=== PATIENT | female | born 1955 | race Caucasian/White ===

== ENCOUNTER → 2019-11-28 11:22 | Outpatient (CLI) | payer MEDICARE, SELFPAY ==
--- NOTE | ~2019-11-28 | MM_ITS ---
EXAMINATION: MM screening [facility] BI w barby HISTORY: Screening mammogram TECHNIQUE: Craniocaudal and mediolateral oblique 3-D tomosynthesis images were obtained and synthetic 2-D images were generated. CAD analysis was submitted and interpreted. COMPARISON: Comparison to multiple prior studies sequentially, with oldest reviewed study dated 03/01. BREAST PARENCHYMAL COMPOSITION: There are scattered areas of fibroglandular density. FINDINGS: There is no evidence of suspicious mass, calcification, or architectural distortion to sugg est malignancy in either breast. There has been no suspicious interval change. IMPRESSION: 1. No mammographic evidence of malignancy. 2. Recommend routine screening mammography in one year. BI-RADS Category 1: Negative Reviewed, dictated and finalized at location A.
== END ==
PROVIDERS: PCP Physician Assistant; Visit Provider Physician Assistant
DX: Z12.31 Encounter for screening mammogram for malignant neoplasm of breast (principal)
CPT/HCPCS: 77063; 77067

== ENCOUNTER → 2021-04-07 11:42 | Outpatient (CLI) | payer MEDICARE, SELFPAY ==
--- NOTE | ~2021-04-07 | MM_ITS ---
EXAMINATION: MM screening [facility] BI w barby HISTORY: Screening mammogram TECHNIQUE: Craniocaudal and mediolateral oblique 3-D tomosynthesis images were obtained and synthetic 2-D images were generated. CAD analysis was submitted and interpreted. COMPARISON: 11/28/2019, 08/18/2018, 07/15/2016 bilateral screening mammogram examinations BREAST PARENCHYMAL COMPOSITION: There are scattered areas of fibroglandular density. FINDINGS: Stable fibroglandular asymmetry. There is no evidence of suspicious mass, calcification, or architectural distortion to suggest malignancy in either breast. There has been no suspicious interv al change. IMPRESSION: 1. No mammographic evidence of malignancy. 2. Recommend routine screening mammography in one year. BI-RADS Category 1: Negative Reviewed, dictated and finalized at location A. MBLER BODY
== END ==
PROVIDERS: PCP Physician Assistant; Visit Provider Obstetrics & Gynecology
DX: Z12.31 Encounter for screening mammogram for malignant neoplasm of breast (principal)
CPT/HCPCS: 77063; 77067

== ENCOUNTER → 2021-06-23 10:34 | Outpatient (CLI) | payer MEDICARE, SELFPAY ==
--- NOTE | ~2021-06-23 | XR_ITS ---
XR hip LT min 2V 06/23/2021 10:53 Indication: Left hip pain Procedure: 2 views left hip Comparison: No prior studies for comparison. Findings: No fracture, subluxation or dislocation. There is a possible healed left superior pubic matthew us fracture. No significant soft tissue abnormality. No significant joint space narrowing. Impression: 1: No acute bone or joint abnormality. Reviewed, dictated and finalized at location B. ING MOLDER Impression: 1: No acute bone or joint abnormality.
== END ==
PROVIDERS: PCP Physician Assistant; Visit Provider Physician Assistant
DX: M25.552 Pain in left hip (principal)
CPT/HCPCS: 73502

== ENCOUNTER → 2022-04-10 11:00 | Outpatient (CLI) | payer MEDICARE, SELFPAY ==
--- NOTE | ~2022-04-10 | MM_ITS ---
EXAMINATION: MM screening [facility] BI w barby HISTORY: Screening mammogram TECHNIQUE: Craniocaudal and mediolateral oblique 3-D tomosynthesis images were obtained and synthetic 2-D images were generated. CAD analysis was submitted and interpreted. COMPARISON: 04/17/2021, 11/28/2019, 08/18/2018 bilateral screening mammogram examinations BREAST PARENCHYMAL COMPOSITION: There are scattered areas of fibroglandular density. FINDINGS: There is stable fibroglandular asymmetry. There is no evidence of suspicious mass, calcific ation, or architectural distortion to suggest malignancy in either breast. There has been no suspicio us interval change. IMPRESSION: 1. No mammographic evidence of malignancy. 2. Recommend routine screening mammography in one year. BI-RADS Category 1: Negative Reviewed, dictated and finalized at location A. RION ESSBASE DEVELOPER
--- NOTE | ~2022-04-10 | DEXA_ITS ---
Bone Density Report Name: JAQUI RIBEIRO Age: 66 Sex: Female Ethnicity: White Date of : 1955 Indication: osteopenia; height loss; hysterectomy; postmenopausal Referring Provider: SILVANO Study: Bone densitometry was performed. Exam Date: April 10, 2022 Accession number: [id number] Bone Density: Region BMD T-score Z-score Classification AP Spine (L1-L4) 0.828 -2.0 0.0 Osteopenia Femoral Neck (Left) 0.692 -1.4 0.3 Osteopenia Total Hip (Left) 0.839 -0.8 0.6 Normal Femoral Neck (Right) 0.676 -1.6 0.2 Osteopenia Total Hip (Right) 0.827 -0.9 0.5 Normal Total Hip Mean 0.833 -0.9 0.6 Normal World Health Organization criteria for BMD impression classify patients as: Normal (T-score at or above -1.0), Osteopenia (T-score between -1.0 and -2.5), or Osteoporosis (T-score at or below -2.5). 10-year Fracture Risk(1): Major Osteoporotic Fracture 9.5% Hip Fracture 1.2% Reported Risk Factors: [place] (), Neck BMD=0.676, BMI=29.0 (1) FRAX(R) Version 3.08. Fracture probability calculated for an untreated patient. Fracture probability may be lower if the patient has received treatment. Previous Exams: Region Exam Age BMD T-score BMD Change BMD Change Date g/cm2 vs Baseline vs Previous AP Spine(L1-L4) 04/10/2022 66 0.828 -2.0 0.010 0.003 08/08/2015 59 0.826 -2.0 0.008 0.037* 02/24/2013 57 0.789 -2.3 -0.029* -0.029* 02/13/2011 55 0.818 -2.1 Total Hip(Left) 04/10/2022 66 0.839 -0.8 0.059* 0.057* 08/08/2015 59 0.782 -1.3 0.002 -0.040* 02/24/2013 57 0.822 -1.0 0.042* 0.042* 02/13/2011 55 0.780 -1.3 Total Hip(Right) 04/10/2022 66 0.827 -0.9 0.035* 0.013 08/08/2015 59 0.814 -1.0 0.022 -0.017 02/24/2013 57 0.831 -0.9 0.039* 0.039* 02/13/2011 55 0.792 -1.2 *Denotes significance at 95% confidence level, LSC for AP Spine = 0.022 g/cm2, LSC for Total Hip = 0.027 g/cm2 Clinical Information Provided by Patient: Has used the following medications: Calcium, calcium includes vit D Has the following medical conditions: Hysterectomy Patient maximum height was 65 Menopause Age: 48 No regular weight bearing exercise Does not regularly consume dairy products Drinks caffeinated beverages Onset of menses at age 10.5 Number of children 2
== END ==
PROVIDERS: PCP Physician Assistant
DX: Z12.31 Encounter for screening mammogram for malignant neoplasm of breast (principal); M85.88 Other specified disorders of bone density and structure, other site; M85.852 Other specified disorders of bone density and structure, left thigh; M85.851 Other specified disorders of bone density and structure, right thigh
CPT/HCPCS: 77063; 77067; 77080

== ENCOUNTER → 2023-07-10 09:44 | Outpatient (CLI) | payer MEDICARE, SELFPAY ==
--- NOTE | ~2023-07-10 | MM_ITS ---
EXAMINATION: MM screening [facility] BI w barby HISTORY: Screening mammogram TECHNIQUE: Craniocaudal and mediolateral oblique 3-D tomosynthesis images were obtained and synthetic 2-D images were generated. CAD analysis was submitted and interpreted. COMPARISON: 04/10/2022, 04/19/2021, 11/28/2019 BREAST PARENCHYMAL COMPOSITION:Not Dense. There are scattered areas of fibroglandular density. FINDINGS: No suspicious mass, calcification, or architectural distortion are identified in either satish ast to suggest malignancy. There has been no suspicious interval change. IMPRESSION: No mammographic evidence of malignancy. Recommend routine screening mammography in one year. BI-RADS Category 1: Negative Reviewed, dictated and finalized at location . LINE OILER
== END ==
PROVIDERS: PCP Physician Assistant; Visit Provider Physician Assistant
DX: Z12.31 Encounter for screening mammogram for malignant neoplasm of breast (principal)
CPT/HCPCS: 77063; 77067

== ENCOUNTER 2024-08-17 08:58 | Outpatient (CLI) | payer MEDICARE, SELFPAY ==
--- OUTSIDE RECORDS SUMMARY | 2024-08-17 09:15 | XMS_ITS | Clinical Summary ---
Author Organization [facility] Address On license of [facility] [place] [address] Care Team Providers Care Plant Physiology Teacher Name Role Phone Unavailable Primary Care Provider Unavailabl e Social History Tobacco Use Types Packs/Day Years Used Date Smoking Tobacco: Never Assessed Comments Unknown Sex and Gender Information Value Date Recorded Sex Assigned at Not on file Legal Sex Female 7:50 PM CDT Gender Identity Not on file Sexual Orientation Not on file Plan of Treatment Health Maintenance Due Date Last Done Comments Colorectal Cancer Screening Colonoscopy (10 Years) 1955 Hepatitis C 09/20/1971 DTaP, Tdap and Td Vaccines ( 1 - Tdap) 1972 Mammogram Screening 1993 Zoster Vaccines (1 of 2) 09/20/2003 Dexa Scan (General) 2018 Pneumococcal Vaccine: 65+ Ye ars (1 of 1 - PCV) 2018 COVID-19 Vaccine (2023-2 5 season) 2024 Influenza Adult (#1) 2024 RSV Immunization or 60+ Years (1 - 1-dose 75+ series) 2028 Meningococcal B Vaccine Aged Out No l onger eligible based on patient's age to complete this topic Meningococcal Vaccine Aged Out No gerri contreras eligible based on patient's age to complete this topic RSV Immunizations Under 20 Months Aged Out No longer eligible based on patient's age to complete this topic
--- OUTSIDE RECORDS SUMMARY | 2024-08-17 09:15 | XMS_ITS | Clinical Summary ---
Author Organization [facility] [place] [address] [facility] Address [address] [place] [address] Care Team Providers Care Radio Repairer Domestic Name Role Phone Ericka Morfin Primary Care Provider [phone] Allergies Active Allergy Reactions Criticality Noted Date Comments Oxycodone-Acetaminophen Nausea And Vomiting Low 02/2010 Medications ALPRAZolam (XANAX) 0.5 mg tablet Take by mouth nightly as needed 12/24/2021 Active Premarin vaginal cream 2 (two) times a week 12/24/2021 Active ondansetron (ZOFRAN) 4 mg tablet as needed 11/26/2021 Active vibegron (Gemtesa) 75 mg tablet Take by mouth Active lisinopriL (PRINIVIL,ZESTR IL) 10 mg tablet Take 1 tablet (10 mg total) by mouth daily for 90 days 90 tablet 1 01/06/2022 Active diphenhydrAMINE (BENADRYL) 25 mg capsule Take 25 mg by mouth nightly as needed for sleep (Half dose at bedtime) Active Active Problems Problem Noted Date Diagnosed Date Obesity (BMI 30-39.9) 03/08/2022 Assessment & Plan (03/08/2022 11:02 PM CDT): Discussed the patient's BMI. The BMI is above average. BMI management plan is completed. BMI Follow-up includes: nutrition counseling, exercise counseling and education provided. BMI 31.0-31.9,adult 03/08/2022 Assessment & Plan (03/08/2022 11:02 PM CDT): Discussed the patient's BMI. The BMI is above average. BMI management plan is completed. BMI Follow-up includes: nutrition counseling, exercise counseling and education provided. Pre-diabetes 01/21/2022 Annual physical exam 01/18/2022 Assessment & Plan (01/18/2022 12:57 AM CDT): Encouraged healthy lifestyle, good nutrition and exercise. Encouraged Calcium and Vitamin D and weight bearing exercise for bone health. Reviewed immunizations Reviewed age appropirate screenings. Colon cancer screening 01/18/2022 Assessment & Plan (01/18/2022 12:57 AM CDT): Discussed colon cancer screening options. Prefers Cologuard. Order placed Family history of diabetes mellitus 01/18/2022 Assessment & Plan (01/18/2022 12:58 AM CDT): Check labs Family history of early CAD 01/18/2022 Assessment & Plan (01/18/2022 12:58 AM CDT): Check labs Fatigue 01/18/2022 Assessment & Plan (01/18/2022 12:58 AM CDT): Probably multifactorial. Check labs and followup to re-evaluate Primary hypertension 01/18/2022 Assessment & Plan (03/08/2022 11:01 PM CDT): Bp is stable/in acceptable range for any co-morbidities. Encouraged to limit sodium intake and exercise for weight control. Patient has tolerated the 10 mg of lisinopril well. She has in the last few weeks noticed a little dizziness in the morning when she wakes. Admits she is not drinking enough water. She is cautious on her intake due to OAB symptoms. Encouraged to drink 32 oz before noon drinking additional 32 oz before 6:00 p.m. and let us continue to watch her readings and see if she does okay through the night not having to get up to urinate but also a more stable blood pressure. She is to call with readings in the next couple of weeks. She would experience a syncopal event have dizziness throughout the day or any new symptoms she is to call the office immediately. Assessment & Plan (01/18/2022 12:58 AM CDT): Bp is stable/in acceptable range for any co-morbidities. Encouraged to limit sodium intake and exercise for weight control. Continue lisinopril 10 mg OAB (overactive bladder) 01/18/2022 Assessment & Plan (03/08/2022 11:01 PM CDT): Continue OAB medication Assessment & Plan (01/18/2022 12:58 AM CDT): Continue per Dr. Marcela guevara well. She is on Gemtesa History of hepatitis C 01/18/2022 Assessment & Plan (01/18/2022 12:59 AM CDT): History of hepatitis C decades ago. She remembers being treated and told no further follow-up was needed. Anxiety 01/18/2022 Assessment & Plan (01/18/2022 12:59 AM CDT): Patient states she has had chronic anxiety. Has been using Xanax 2 to 3 times a week through Dr. Rosie Lyles who is now retired. Advised I will continue to prescribe this on a p.r.n. basis but if she begins to use more will need to discuss the daily treatment option. She is in agreement with the plan Vitamin D deficiency 01/06/2022 Assessment & Plan (01/18/2022 12:57 AM CDT): Supplements Immunizations Immunization Administration Dates Next Due Influenza, Quadrivalent, Hig h Dose, Preservative Free, Intrr 03/03/2022,03/21/2021,03/25/2020 Influenza, Quadrivalent, Spl it, Intramuscular 06/20/2015 Influenza, Trivalent, High D ose, Split, Preservative Free, Intramuscular 03/04/2019 Pneumococcal Conjugate PCV 13 03/21/2021, 019 Pneumococcal Polysaccharide PPV23 03/25/2020 Tdap 08/29/2016 Varicella Zoster Immune Globulin 03/25/2020 ZOSTER Recombinant 06/19/2019,04/08/2019 Surgical History Surgery Date Site/Laterality Comments OTHER SURGICAL HISTORY D & C TUBAL LIGATION 1992 Bilateral tubal ligation KNEE SURGERY 2009 Knee surgery INGUINAL HERNIA REPAIR 2010 Left Inguinal Hernia Repair VAGINAL HYSTERECTOMY 2012 Hysterectomy, Vaginal OOPHERECTOMY Medical History Medical History Date Comments Hx Other Medical 1988 Ectopic Pregnan cy Hx Other Medical Migraines Hx Other Medical Vitamin D Defic iency Hepatitis C virus infection Hepa titis C Family History Medical History Relation Name Comments Other Father 2 Pancreatic Canc er; Cause of : Pancreatic Cancer Breast cancer Father's Sister 2 Cancer, b reast; Coronary artery disease Maternal Grandmother 2 Coronary Artery Disease; Diabetes type II Mother 2 Diabetes Ty pe II; Cause of : Diabetes Type II Heart failure Mother 2 Congestive Hea rt Failure; Cause of : Congestive Heart Failure Hypertension Mother 2 Hypertension; Coronary artery disease Paternal Grandmother 2 Coronary Artery Disease; Other Paternal Grandmother 2 Brain Aneurism; Relation Name Status Comments Father 1 Father 2 Father's Sister 1 Alive Father's Sister 2 Maternal Grandmother 1 Alive Maternal Grandmother 2 Mother 1 Alive Mother 2 Paternal Grandmother 1 Alive Paternal Grandmother 2 Social History Tobacco Use Types Packs/Day Years Used Date Smoking Tobacco: Never Smokeless Tobacco: Never Alcohol Use Standard Drinks/Week Comments No 0 (1 standard drink = 0.6 oz pur e alcohol) AUDIT-C Answer Date Recorded Q1: How often do you have a drink containing alcohol? Never 02/20/2022 Q2: How many drinks containi ng alcohol do you have on a typical day when you are drinking? Patient does not drink Q3: How often do you have si x or more drinks on one occasion? Never 02/20/2022 PHQ-2 Answer Date Recorded PHQ-2 Total Score (If total score is 3 or more points, staff should administer the PHQ-9) 0 01/06/2022 Comments Unknown Sex and Gender Information Value Date Recorded Sex Assigned at Not on file Legal Sex Female 3:06 AM SENIOR LANDSCAPE ARCHITECT Gender Identity Not on file Sexual Orientation Not on file Obstetrics History Last Filed Vital Signs Vital Sign Reading Time Taken Comments Blood Pressure 119/104 10/27/2023 4:19 PM CDT Pulse 76 02/20/2022 9:56 AM CDT Temperature 36.4 C (97.5 F) 02/20/2022 9:56 AM CDT Respiratory Rate 18 01/06/2022 10:26 AM CDT Oxygen Saturation 97% 02/20/2022 9:56 AM CDT Inhaled Oxygen Concentration - - Weight 77.6 kg (171 lb) 02/20/2022 9:56 AM CDT Height 158.1 cm (5' 2.25 ) 02/20/2022 9:56 AM CD T Body Mass Index 31.03 02/20/2022 9:56 AM CDT Plan of Treatment Health Maintenance Due Date Last Done Comments Colon Cancer Screening-Colonoscopy 1955 Fall Risk Assessment 1955 Osteoporosis Screening-Bone Density Scan 1955 Hepatitis B Screening 09/20/1971 Breast Cancer Screening-Mammogram 07/05/2016 016 Depression Screening 01/06/2023 01/06/2022 Well Visit 65+ 01/06/2023 01/06/2022 Covid-19 Vaccine (4 - 2023-2 5 season) 2024 04/10/2021, 08/19/2020, 07/18/2020 Influenza Vaccine (#1) 2024 , 03/21/2021, 03/25/2020, Additional history exists DTaP/Tdap/Td Vaccine (2 - Td or Tdap) 08/29/2026 08/29/2016 Zoster Vaccine Completed 06/19/2019, 04/08/2019 Pneumococcal vaccine 65+ Completed 021, 03/25/2020, 03/04/2019 Hepatitis C Screening Completed 01/18/2022, 022 Procedures Procedure Name Priority Date/Time Associated Diagnosis Comments SCREENING MAMMOGRAM BILATERAL W SHLOMO Routine 07/05/2015 10:03 AM SENIOR LANDSCAPE ARCHITECT from Last 3 Months or Most Recently Relevant to Health Maintenance Results * Screening Mammogram Bilateral W Shlomo (07/05/2015 10:03 AM SENIOR LANDSCAPE ARCHITECT) Anatomical Region Laterality Modality Breast Bilateral Mammography 07/05/2015 10:0 3 AM SENIOR LANDSCAPE ARCHITECT Impressions 07/12/2015 11:09 AM SENIOR LANDSCAPE ARCHITECT BI-RAD 1 NEGATIVE There is no mammographic evidence of malignancy. A 1 year screening mammogram is recommended. The patient has been or will be contacted. The patient will be entered into an automated reminder system to schedule a mammogram in one year. Electronically signed by: Dr. Gurdeep mays/[email or web address]:07/12/2015 11:09:15 Pull Over: Avis DUPONT)(Juan Luis), [facility] letter sent: Normal Exam Reading location: BI-RADS: 1 Negative [EOD] Narrative 07/12/2015 11:09 AM SENIOR LANDSCAPE ARCHITECT - [place] BILAT SCREENING 3D W/CAD BILATERAL DIGITAL SCREENING MAMMOGRAM 3D/2D WITH CAD WITH MEDIOLATERAL OBLIQUE CRANIOCAUDAL: 07/05/2015 The study was acquired using full field digital technology and interpreted from soft copy. Current study was also evaluated with R2 CAD. 2D digital mammographic views, as well as 3D digital tomosynthesis were performed in the CC and MLO projections. CLINICAL: Routine mammogram. Patient denies any problems. Paternal aunt with breast cancer. No personal history of breast cancer. COMPARISONS: Comparison is made to exams dated: 05/03/2013 mammogram and 06/27/2014 mammogram - [facility]. BREAST TISSUE: There are scattered areas of fibroglandular density. FINDINGS: No significant masses, calcifications, or other findings are seen in either breast. There has been no significant interval change. Procedure Note Provider, MD Joce - 10/15/2020 - [place] BILAT SCREENING 3D W/CAD BILATERAL DIGITAL SCREENING MAMMOGRAM 3D/2D WITH CAD WITH MEDIOLATERALOBLIQUE CRANIOCAUDAL: 07/05/2015 The study was acquired using full field digital technology and interpretedfrom soft copy. Current study was also evaluated with R2 CAD. 2D digital mammographic views, as well as 3D digital tomosynthesis were performed in the CC and MLO projections. CLINICAL: Routine mammogram. Patient denies any problems. Paternal auntwith breast cancer. No personal history of breast cancer. COMPARISONS: Comparison is made to exams dated: 05/03/2013 mammogram and 06/27/2014 mammogram - [facility]. BREAST TISSUE: There are scattered areas of fibroglandular density. FINDINGS: No significant masses, calcifications, or other findings areseen in either breast. There has been no significant interval change. IMPRESSION: BI-RAD 1 NEGATIVE There is no mammographic evidence of malignancy. A 1 year screeningmammogram is recommended. The patient has been or will be contacted. The patient will be entered into an automated reminder system to schedulea mammogram in one year. Electronically signed by: Dr. Gurdeep Coates wv/penrad:07/12/2015 11:09:15 Pull Over: Avis Martinez RT(R)(M), [facility] letter sent: Normal Exam Reading location: BI-RADS: 1 Negative [EOD] us Blake Trevizo MD IMG MAMMO PROCEDURES Final Result from Last 3 Months or Most Recently Relevant to Health Maintenance Insurance MEDICARE SOLUTIONS MEDICARE SOLUTIONS Care Teams Radio Repairer Domestic Relationship Specialty Start Date End Date Ericka Morfin PA [address] [place] [address] PCP - General Family Medicine 10/27/23
--- OUTSIDE RECORDS SUMMARY | 2024-08-17 09:15 | XMS_ITS | Referral Summary ---
Author Organization [facility] [place] [address] [facility] Address [address] [place] [address] Care Team Providers Care Business Unit Director Name Role Phone Ericka Morfin Primary Care Provider [phone] Allergies Active Allergy Reactions Criticality Noted Date [...] Zoster Immune Globulin 03/25/2020 ZOSTER Recombinant 06/19/2019,04/08/2019 Social History Tobacco Use Types Packs/Day Years [...] on file Legal Sex Female 3:06 AM LUBRICATION SERVICER Gender Identity Not on file Sexual Orientation Not on file Last Filed Vital Signs Vital Sign Reading [...] 02/20/2022 9:56 AM CDT Plan of Treatment Not on file Procedures Procedure Name Priority Date/Time Associated Diagnosis Comments SCREENING MAMMOGRAM BILATERAL W SHLOMO Routine 07/05/2015 10:03 AM LUBRICATION SERVICER from Last 3 Months or Most Recently Relevant to Health Maintenance Results * Screening Mammogram Bilateral W Shlomo (07/05/2015 10:03 AM LUBRICATION SERVICER) Anatomical Region Laterality Modality Breast Bilateral Mammography 07/05/2015 10:0 3 AM LUBRICATION SERVICER Impressions 07/12/2015 11:09 AM LUBRICATION SERVICER BI-RAD 1 NEGATIVE There is no mammographic evidence of malignancy. A 1 year screening mammogram is recommended. The patient has been or will be contacted. The patient will be entered into an automated reminder system to schedule a mammogram in one year. Electronically signed by: Dr. Gurdeep Coates nh/penrad:07/12/2015 11:09:15 High Pressure Boiler Operator: vAis RICARDO(R)(M), [facility] letter sent: Normal Exam Reading location: BI-RADS: 1 Negative [EOD] Narrative 07/12/2015 11:09 AM LUBRICATION SERVICER - [place] BILAT SCREENING 3D W/CAD BILATERAL [...] dated: 05/03/2013 mammogram and 06/27/2014 mammogram - [facility]. BREAST TISSUE: There are scattered areas of [...] dated: 05/03/2013 mammogram and 06/27/2014 mammogram - [facility]. BREAST TISSUE: There are scattered areas of [...] year. Electronically signed by: Dr. Gurdeep Coates nh/penrad:07/12/2015 11:09:15 High Pressure Boiler Operator: Avis Martinez RT(R)(M), [facility] letter sent: Normal Exam Reading location: BI-RADS: 1 Negative [EOD] us Blake Trevizo MD IMG MAMMO PROCEDURES Final Result from Last 3 Months or Most Recently Relevant to Health Maintenance Insurance MEDICARE SOL[employer] [facility] MEDICARE Address[id number] [place] [address] MEDICARE SOLUTIONS [facility] MEDICARE Address: [facility] [address] [place] [address] Care Teams Business Unit Director Relationship Specialty Start Date End Date Ericka Morfin PA [address] [place] [id number] PCP - General Family Medicine 10/27/23
--- OUTSIDE RECORDS SUMMARY | 2024-08-17 09:16 | XMS_ITS | Clinical Summary ---
Author Organization [facility] Address [address] [place] [address] Phone Care Team Providers Care Army Manager Name Role Phone Sanjuana Paredes MD Primary Care Provider Allergies Active Allergy Reactions Criticality Noted Date Comments Oxycodone-Acetaminophen Nausea and Vomiting Low 02/2010 Medications alendronate (FOSAMAX) 70 mg Oral tablet Take 70 mg by mouth every 7 days. empty stomach before other meds,with 8oz of water, stay upright 30 min Active CALCIUM PHOSPHATE/VITAM IN D3 (VITAMIN D, WITH CALCIUM, ORAL)Indication s:600MG/BID/400 MGBID Take by mouth. Indications: 600MG/BID/40 0MGBID Active Social History Tobacco Use Types Packs/Day Years Used Date Smoking Tobacco: Never Smokeless Tobacco: Never Alcohol Use Standard Drinks/Week Comments No 0 (1 standard drink = 0.6 oz pur e alcohol) Comments Unknown Sex and Gender Information Value Date Recorded Sex Assigned at Not on file Legal Sex Female 5:54 AM FULL DECATOR OPERATOR Gender Identity Not on file Sexual Orientation Not on file Last Filed Vital Signs Vital Sign Reading Time Taken Comments Blood Pressure 109/63 08/06/2010 6:30 PM FULL DECATOR OPERATOR Pulse 80 08/06/2010 6:30 PM FULL DECATOR OPERATOR Temperature 37.4 C (99.4 F) 08/06/2010 6:30 PM FULL DECATOR OPERATOR Respiratory Rate 16 08/06/2010 6:30 PM FULL DECATOR OPERATOR Oxygen Saturation 99% 08/06/2010 6:30 PM FULL DECATOR OPERATOR Inhaled Oxygen Concentration - - Weight 63.5 kg (140 lb) 07/30/2010 4:43 PM FULL DECATOR OPERATOR Height 165.1 cm (5' 5 ) 07/30/2010 4:43 PM FULL DECATOR OPERATOR Body Mass Index 23.3 07/30/2010 4:43 PM FULL DECATOR OPERATOR Plan of Treatment Health Maintenance Due Date Last Done Comments DTAP/TDAP/TD VACCINES (1 - Tdap) 1972 BREAST CANCER SCREENING 1993 COLORECTAL SCREENING 1998 Colorectal Cancer Screening 1998 FIT-DNA Q 3 years 1998 FIT/FOBT Q 1 year 1998 Flex Sig/CT Colonography Q 5 years 1998 PNEUMOCOCCAL VACCINE 50+ YEARS (1 of 1 - PCV) 09/20/19 04 ZOSTER VACCINE (1 of 2) 09/20/2003 OSTEOPOROSIS SCREENING 2018 INFLUENZA VACCINE (#1) 2023 RSV VACCINE (60+ or ) (1 - 1-dose 75+ series) 2028 Medical Devices Implanted Type Area Stone Breaker Device Identifier Shelf Expiration Date Model / Serial / Lot Log [id number] - Cement - 1 - Cement Smartset Hv 40gr 3092-040 Implanted:Qty : 1 on 02/07/2010 at [facility] Cement Left: Knee J&J- DEPUY LYLE 07/01/2011 3092-040 / / [id number] Log 02914 - Cement - 1 - Cement Smartmix Ghv 40gm 5450-35-500 Implanted:Qty : 1 on 03/07/2010 at [facility] Cement Right: Knee J&J- [employer] 07/30/2011 5450-35-5 00 / / [id number] Log 03356 - Depuy Total Knee - 1 - Patella Dome 3peg 35mm 96-0101 Implanted:Qty : 1 on 02/07/2010 at [facility] Knee Left: Knee J&J- [employer] 11/28/2014 96-0101 / / [id number] Log [id number] - Depuy Total Knee - 1 - Comp Tib Sigma Mbt George Sz3 1294-33-130 Implanted:Qty : 1 on 02/07/2010 at [facility] Knee Left: Knee J&J- [employer] 11/28/2014 1294-33-1 30 / / [id number] - [id number] Implanted:Qty : 1 on 03/07/2010 at [facility] Knee Right: Knee DEPUY ORTHO 01/30/2020 / [id number] / [id number] Log [id number] - Depuy Total Knee - 1 - Patella Dome 3peg 35mm 96-0101 Implanted:Qty : 1 on 03/07/2010 at [facility] Knee Right: Patella J&J- [employer] 11/28/2014 96-0101 / / [id number] Log 91200 - Depuy Total Knee - 1 - Comp Tib Sigma Mbt Keel Sz3 1294-33-130 Implanted:Qty : 1 on 03/07/2010 at [facility] Knee Right: Tibia J&J- [employer] 11/28/2014 1294-33-1 30 / / [id number] Log 41192 - Depuy Total Knee - 1 - Insert Tib Sigma Rp Stb Sz4 96-2003 Implanted:Qty : 1 on 03/07/2010 at [facility] Knee Right: Knee J&J- [employer] 10/27/2014 96-2143 / [id number] / [id number] Description:Ref 96-2143 Log [id number] - Mesh Ethicon Hernia - 1 - Mesh U[employer] Med [id number] Implanted:Qty : 1 on 08/06/2010 at [facility] Mesh Left: Inguinal J&J- ETHICON INC 11/29/2011 UHSM6 / [id number] / [id number] Tibial Insert Implanted:Qty : 1 on 02/07/2010 at [facility] Left: Knee DEPUY ORTHO 08/29/2014 96-2143 / / [id number] Femoral Component Implanted:Qty : 1 on 02/07/2010 at [facility] Left: Knee DEPUY ORTHO 08/30/2019 1960-40-4 50 / / [id number] Insurance BCBS BLUE ACCESS/TRUE BLUE PPO Advance Directives For more information, please contact: [phone] * Full Code (Latest Code Status on File) Date Activated Date Inactivated Comments 08/06/2010 11:25 AM 08/06/2010 9:36 PM * Full Code Date Activated Date Inactivated Comments 08/06/2010 10:06 AM 08/06/2010 11:25 AM * Full Code Date Activated Date Inactivated Comments 08/06/2010 9:07 AM 08/06/2010 10:06 AM * Full Code Date Activated Date Inactivated Comments 03/07/2010 3:28 PM 03/10/2010 5:35 PM * Full Code Date Activated Date Inactivated Comments 03/07/2010 8:58 AM 03/07/2010 3:28 PM Care Teams Army Manager Relationship Specialty Start Date End Date Sanjuana Paredes MD PCP - General Family Practice 01/24/10
[2024-09-05 11:20] VITALS: BMI 28.3
--- NOTE | 2024-09-05 11:20 | P.SLEEP_ITS ---
Sleep Study - Home Unattended Date of Study: 08/17/24 Ordering Provider: Amaury Smith MD Interpreting Provider: Vivian Dumas, DO Home Sleep Study Type: Watch PAT Height: 1.65 m Weight: 77.111 kg Body Mass Index: 28.3 Neck Circumference (inches): 12.5 [place]: 2 Reason for Sleep Study Difficulty staying asleep Sleep History The patient is a 68-year-old female that had a sleep study ordered by her primary care physician for sleep disturbances. The patient denies awakening from sleep short of breath. She occasionally awakens at night with heartburn and cough. She is unsure if she snores. She occasionally has trouble sleeping when she has a cold. She denies waking up gasping for air throughout the night. She denies sweating excessively at night. She occasionally has heart palpitations or irregular heartbeats during the night. She denies falling asleep during the day and while driving. She occasionally experiences loss of muscle tone when extremely emotional. She rarely has trouble at school or work due to sleepiness. She denies feeling unable to move waking up or falling asleep. She occasionally experiences vivid dreamlike scenes upon awakening or falling asleep. She denies feeling afraid of going to sleep. She occasionally has nightmares. She occasionally remembers her dreams. She frequently has thoughts racing through her mind. She frequently feels sad, depressed and anxious. She occasionally has muscular tension. She denies noticing parts of her body jerk. She denies kicking during the night. She occasionally has aching feelings in her legs and occasionally has leg pain during the night. She denies awakening with morning jaw pain. She denies being bothered by pain during the day. She is rarely awakened by pain during the night. She rarely wakes up feeling stiff in the morning. She rarely wakes up with sore or achy muscles. She occasionally wakes up with pain in the neck, spine and other joints. She goes to bed at 11:00 p.m. on weekdays and at midnight on the weekends. The amount of time it takes for her to fall asleep is variable. She wakes up 5 times throughout the night to urinate. The amount of time it takes her to fall back asleep after waking up during the night is variable. She wakes up between 7 8:00 a.m. on both weekdays and weekends. She typically gets 7 hours of sleep per night. She will stay in bed for 30 minutes after waking up in the morning. She currently lives with her . She denies consuming any caffeinated beverages within 2 hours of bedtime. She denies engaging in physical exercise before bedtime. She will read and watch television before falling asleep. She denies taking naps in afternoon or the evening. She will have 1 cup of coffee in the morning and occasionally have a caffeinated soda. She denies tobacco, alcohol and recreational drug use. [facility] Past Medical History Medical History Vertigo Overactive bladder Hypertension History of hepatitis C Osteoporosis Osteoarthritis Varicose veins of both lower extremities Chondromalacia Surgical History Surgical History History of bladder suspension procedure 11/06/2014 History of total abdominal hysterectomy and bilateral salpingo-oophorectomy 04/14/2013 History of left inguinal hernia repair 08/06/2010 History of bilateral knee arthroplasty left 01/2010 right 02/2010 History of D&C Family History Family History Father Pancreatic cancer Alcoholism Mother Heart disease Diabetes mellitus Hypertension Social History Social History Smoking status: Never smoker Alcohol intake: never Substance use: never Substance use type: does not use Do You Feel Safe in your Home?: Yes Lack of Transportation: No Lack of Food: Never True Current Housing: I Have Housing Concerned About Future Housing: No Difficulty Paying Gas/Electric Bills: No Difficulty Paying for Meds: No Currently Unemployed: No Education: Trade/Vocational Certificate Difficulty w/ Childcare or Family Care: No Living arrangements: with family Occupation/Education: occupation Gender identity (if verbalized by the patient): Female Sexual Orientation (if Verbalized by the Patient): Straight or Heterosexual Spiritual care concerns: No Medications Home Medications ?Medication ?Instructions ?Recorded ?Confirmed ?Type conjugated estrogens 0.625 mg/gram 0.625 mg vaginal 2XW 10/09/22 04/21/24 History vaginal cream (Premarin) meclizine 25 mg tablet 25 mg PO BID PRN dizziness #60 tabs 10/11/22 04/21/24 Rx lisinopril 20 1 tablet PO DAILY #90 tabs 04/21/24 04/21/24 Rx mg-hydrochlorothiazide 25 mg tablet alprazolam 0.5 mg tablet 0.5 mg PO DAILY PRN anxiety #30 06/02/24 Rx tabs zolpidem 5 mg tablet 5 mg PO QHS PRN insomnia #30 tabs 06/02/24 Rx ondansetron HCl 4 mg tablet 4 mg PO DAILY #30 tabs 07/11/24 Rx solifenacin 5 mg tablet 5 mg PO DAILY #30 tabs 08/27/24 Rx Sleep Procedure The sleep study was completed using [employer] a technically adequate device with seven channels: peripheral arterial tone, actigraphy, body position, snore, respiratory movement, pulse oximetry, sleep staging, and heart rate. Prior to using the device, the patient received verbal and written instructions for its application and was provided with the help desk phone number for additional telephonic instruction with 24-hour availability of qualified personnel to answer questions. The study was scored using CMS guidelines. Sleep Architecture The total recording time is 9 hrs, 6 min. The total sleep time is 8 hrs, 33 min. Sleep latency is 15 minutes. REM latency is 175 minutes. The patient had 9 episodes of waking. Sleep architecture shows 23.3% deep sleep, 38.6% light sleep, and (as % Total Sleep Time) showed NREM (Light 38.6%; Deep 23.3%), and a 38.1% stage REM. The patient spent 59.9% of total sleep time in the supine position. Sleep efficiency was 93.96. Respiratory Analysis The overall AHI (pAHI 4%:) is 9.2. The overall AHI (pAHI 3%:) is 18.3. The central AHI is 0.1. The AHI was 17.0 in NREM and 20.3 in REM sleep. The AHI was 26.1 in Supine and 7.0 in Non-supine sleep. Percent of Vaibhav Jarquin respirations is 0.0. Oximetry Data The oxygen desaturation index (DEANGELO 4%:) is 9.3. The mean saturation is 92%, and the lowest saturation is 79%. Time spent with saturation < 88% is 2.1 minutes. Snoring Profile Snoring average intensity is 43 dB. The patient snored above 45 decibels for 80.2 minutes, 15.6% of sleep time. Cardiac Profile The average pulse rate is 75 beats per minutes. The lowest pulse rate is 55 bpm. The highest pulse rate reported is 103 bpm. Suspected Afib total duration is 0:00:28, (h:m:sec). The longest Afibevent duration is 0:00:42. A suspected arrhythmia flagged in the sleep report does not necessarily imply an arrhythmia condition is present, but rather suggests that further investigation should be considered. A-Fib events < 60 seconds may be artifact. Premature beats occur 4.5 per minute. Assessment and Plan Assessment and Plan (1) AUSTEN (obstructive sleep apnea): Code(s): G47.33 - Obstructive sleep apnea (adult) (pediatric) Status: Acute Assessment and Plan: The patient had an overall AHI of 9.2 with desaturation down to 79%. This is consistent with mild sleep apnea. Due to the patient's hypertension, she qualifies for treatment. I recommend the patient have a CPAP titration study with the use of a hypnotic to ensure we obtain enough sleep data find an optimal pressure. Patients with insomnia tend to have better CPAP compliance if introduced to CPAP in the lab compared to being prescribed an AutoPAP. The patient also mentioned having frequent symptoms of anxiety and depression in her sleep history. I recommend that the patient complete a PHQ-9 and LISA-7 for further evaluation of mood disorders and review the results with his/her PCP. Data The data obtained during this sleep study is adequate for interpretation. Certification This sleep study has been reviewed by a board certified sleep medicine physician.
== END 2024-08-18 12:25 | disposition home or self-care (01) ==
LOC: ANHCSM 08:59
PROVIDERS: PCP Family Medicine; Visit Provider Family Medicine
DX: G47.33 Obstructive sleep apnea (adult) (pediatric) (principal)
CPT/HCPCS: 95800

== ENCOUNTER 2024-11-03 07:47 | Outpatient (CLI) | payer MEDICARE, SELFPAY ==
--- NOTE | ~2024-11-03 | CT_ITS ---
CT of the Abdomen and Pelvis: Indication: Hematuria Technique: 2.5 mm axial scans were obtained through the abdomen and pelvis prior to and following in travenous administration of 130 cc of Omnipaque 350. Dose reduction technique was used on this scan b y utilizing automated exposure control and iterative reconstruction technique. The dose-length produc t (DLP) was 1493.93 mGy-cm. Findings: Scans through the lung bases are unremarkable. The liver, spleen, pancreas, gallbladder, adrenals and kidneys are within normal limits, aside from l eft renal cyst. No evidence of aortic aneurysm. No lymphadenopathy. No bowel obstruction or bowel wall thickening. There is no evidence to suggest acute appendicitis. Images through the pelvis were performed. Urinary bladder unremarkable. No pelvic mass. No ascites. Impression: No significant abnormalities seen. Reviewed, dictated and finalized at location . Impression: No significant abnormalities seen.
--- OUTSIDE RECORDS SUMMARY | 2024-11-03 07:51 | XMS_ITS | Clinical Summary ---
Author Organization [facility] Address [address] [place] [address] Phone Care Team Providers Care Bar Pilot Name Role Phone Sanjuana Paredes MD Primary [...] on file Legal Sex Female 5:54 AM EXPEDITIONARY FIGHTING VEHICLE CREWMAN Gender Identity Not on file Sexual Orientation Not on file Last Filed Vital Signs Vital Sign Reading Time Taken Comments Blood Pressure 109/63 08/06/2010 6:30 PM EXPEDITIONARY FIGHTING VEHICLE CREWMAN Pulse 80 08/06/2010 6:30 PM EXPEDITIONARY FIGHTING VEHICLE CREWMAN Temperature 37.4 C (99.4 F) 08/06/2010 6:30 PM EXPEDITIONARY FIGHTING VEHICLE CREWMAN Respiratory Rate 16 08/06/2010 6:30 PM EXPEDITIONARY FIGHTING VEHICLE CREWMAN Oxygen Saturation 99% 08/06/2010 6:30 PM EXPEDITIONARY FIGHTING VEHICLE CREWMAN Inhaled Oxygen Concentration - - Weight 63.5 kg (140 lb) 07/30/2010 4:43 PM EXPEDITIONARY FIGHTING VEHICLE CREWMAN Height 165.1 cm (5' 5) 07/30/2010 4:43 PM EXPEDITIONARY FIGHTING VEHICLE CREWMAN Body Mass Index 23.3 07/30/2010 4:43 PM EXPEDITIONARY FIGHTING VEHICLE CREWMAN Plan of Treatment Health Maintenance Due Date [...] series) 2028 Medical Devices Implanted Type Area Area Safety Manager Device Identifier Shelf Expiration Date Model / Serial / Lot Log [id number] - Cement - 1 - Cement Smartset Hv 40gr 3092-040 Implanted:Qty : 1 on 02/07/2010 at [facility] Cement Left: Knee J&J- DEPUY LYLE 07/01/2011 3092-040 / / [id number] Log 59762 - Cement - 1 - Cement Smartmix Ghv 40gm 5450-35-500 Implanted:Qty : 1 on 03/07/2010 at [facility] Cement Right: Knee J&J- [employer] 07/30/2011 5450-35-5 00 / / [id number] Log 79300 - Depuy Total Knee - 1 - Patella Dome 3peg 35mm 96-0101 Implanted:Qty : 1 on 02/07/2010 at [facility] Knee Left: Knee J&J- [employer] 11/28/2014 96-0101 / / [id number] Log [id number] - Depuy Total Knee - 1 - Comp Tib Sigma Mbt George Sz3 1294-33-130 Implanted:Qty : 1 on 02/07/2010 at [facility] Knee Left: Knee J&J- [employer] 11/28/2014 1294-33-1 30 / / [id number] - [id number] Implanted:Qty : 1 on 03/07/2010 at [facility] Knee Right: Knee DEPUY ORTHO 01/30/2020 / [id number] / [id number] Log 12265 - Depuy Total Knee - 1 - Patella Dome 3peg 35mm 96-0101 Implanted:Qty : 1 on 03/07/2010 at [facility] Knee Right: Patella J&J- [employer] 11/28/2014 96-0101 / / [id number] Log 86814 - Depuy Total Knee - 1 - Comp Tib Sigma Mbt Keel Sz3 1294-33-130 Implanted:Qty : 1 on 03/07/2010 at [facility] Knee Right: Tibia J&J- [employer] 11/28/2014 1294-33-1 30 / / [id number] Log 69984 - Depuy Total Knee - 1 - Insert Tib Sigma Rp Stb Sz4 [id number] Implanted:Qty : 1 on 03/07/2010 at [facility] Knee Right: Knee J&J- [employer] 10/27/2014 96-2143 / [id number] / [id number] Description:Ref 96-2143 Log [id number] - Mesh Ethicon Hernia - 1 - Mesh [employer] Med [id number] Implanted:Qty : 1 on 08/06/2010 at [facility] Mesh Left: Inguinal J&J- ETHICON INC 11/29/2011 UHSM6 / [id number] / [id number] Tibial Insert Implanted:Qty : 1 on 02/07/2010 at [facility] Left: Knee DEPUY ORTHO 08/29/2014 96-2143 / / [id number] Femoral Component Implanted:Qty : 1 on 02/07/2010 at [facility] Left: Knee DEPUY ORTHO 08/30/2019 1960-40-4 50 / / [id number] Insurance BCBS BLUE ACCESS/TRUE BLUE PPO Advance Directives For more information, please contact: [phone] * Full Code (Latest Code Status on [...] 8:58 AM 03/07/2010 3:28 PM Care Teams Bar Pilot Relationship Specialty Start Date End Date Sanjuana Paredes MD PCP - General Family Practice 01/24/10
--- OUTSIDE RECORDS SUMMARY | 2024-11-03 07:51 | XMS_ITS | Referral Summary ---
Author Organization [facility] [address] [facility] Address [address] [place] [address] Care Team Providers Care Nursing Technician Name Role Phone Ericka Morfin Primary Care Provider [phone] Allergies Active Allergy Reactions Criticality Noted Date [...] on file Legal Sex Female 3:06 AM PAINTER AND BODY WORK Gender Identity Not on file Sexual Orientation [...] 9:56 AM CDT Height 158.1 cm (5' 2.25) 02/20/2022 9:56 AM CD T Body Mass Index 31.03 02/20/2022 9:56 AM CDT Plan of Treatment Not on file Procedures Procedure Name Priority Date/Time Associated Diagnosis Comments SCREENING MAMMOGRAM BILATERAL W SHLOMO Routine 07/05/2015 10:03 AM PAINTER AND BODY WORK from Last 3 Months or Most Recently Relevant to Health Maintenance Results * Screening Mammogram Bilateral W Shlomo (07/05/2015 10:03 AM PAINTER AND BODY WORK) Anatomical Region Laterality Modality Breast Bilateral Mammography 07/05/2015 10:0 3 AM PAINTER AND BODY WORK Impressions 07/12/2015 11:09 AM PAINTER AND BODY WORK BI-RAD 1 NEGATIVE There is no mammographic evidence of malignancy. A 1 year screening mammogram is recommended. The patient has been or will be contacted. The patient will be entered into an automated reminder system to schedule a mammogram in one year. Electronically signed by: Dr. Gurdeep Coates nh/penrad:07/12/2015 11:09:15 Dietician: Avis RICARDO(R)(M), [facility] letter sent: Normal Exam Reading location: BI-RADS: 1 Negative [EOD] Narrative 07/12/2015 11:09 AM PAINTER AND BODY WORK - [place] BILAT SCREENING 3D W/CAD BILATERAL [...] dated: 05/03/2013 mammogram and 06/27/2014 mammogram - [facility]. BREAST TISSUE: There are scattered areas [...] dated: 05/03/2013 mammogram and 06/27/2014 mammogram - [facility]. BREAST TISSUE: There are scattered areas [...] signed by: Dr. Gurdeep Coates nh/penrad:07/12/2015 11:09:15 Dietician: Avis Martinez RT(R)(M), [facility] letter sent: Normal Exam Reading location: BI-RADS: 1 Negative [EOD] us Blake Trevizo MD IMG MAMMO PROCEDURES Final Result from Last 3 Months or Most Recently Relevant to Health Maintenance Insurance [place] [address] Care Teams Nursing Technician Relationship Specialty Start Date End Date Ericka Morfin PA [address] [place] [address] PCP - General Family Medicine 10/27/23
--- OUTSIDE RECORDS SUMMARY | 2024-11-03 07:51 | XMS_ITS | Clinical Summary ---
Author Organization [facility] [address] [facility] Address [address] [place] [address] Care Team Providers Care Register Repairer Name Role Phone Ericka Morfin Primary Care Provider [phone] Allergies Active Allergy Reactions Criticality Noted Date [...] on file Legal Sex Female 3:06 AM ASSEMBLY ADJUSTER Gender Identity Not on file Sexual Orientation [...] season) 2024 04/10/2021, 08/19/2020, 07/18/2020 Influenza Vaccine (Season Ended) 2025 03/03/2022, 03/21/2021, 03/25/2020, Additional history exists DTaP/Tdap/Td Vaccine (2 - Td or Tdap) 08/29/2026 08/29/2016 Zoster Vaccine Completed 06/19/2019, 04/08/2019 Pneumococcal vaccine 65+ Completed 021, 03/25/2020, 03/04/2019 Hepatitis C Screening Completed 01/18/2022, 022 Procedures Procedure Name Priority Date/Time Associated Diagnosis Comments SCREENING MAMMOGRAM BILATERAL W SHLOMO Routine 07/05/2015 10:03 AM ASSEMBLY ADJUSTER from Last 3 Months or Most Recently Relevant to Health Maintenance Results * Screening Mammogram Bilateral W Shlomo (07/05/2015 10:03 AM ASSEMBLY ADJUSTER) Anatomical Region Laterality Modality Breast Bilateral Mammography 07/05/2015 10:0 3 AM ASSEMBLY ADJUSTER Impressions 07/12/2015 11:09 AM ASSEMBLY ADJUSTER BI-RAD 1 NEGATIVE There is no mammographic evidence of malignancy. A 1 year screening mammogram is recommended. The patient has been or will be contacted. The patient will be entered into an automated reminder system to schedule a mammogram in one year. Electronically signed by: Dr. Gurdeep mays/[email or web address]:07/12/2015 11:09:15 Tree Trimmer Helper: Avis DUPONT)(Juan Luis), [facility] letter sent: Normal Exam Reading location: BI-RADS: 1 Negative [EOD] Narrative 07/12/2015 11:09 AM ASSEMBLY ADJUSTER - [place] BILAT SCREENING 3D W/CAD BILATERAL [...] dated: 05/03/2013 mammogram and 06/27/2014 mammogram - [facility]. BREAST TISSUE: There are scattered areas [...] dated: 05/03/2013 mammogram and 06/27/2014 mammogram - [facility]. BREAST TISSUE: There are scattered areas [...] year. Electronically signed by: Dr. Gurdeep Coates mt/penrad:07/12/2015 11:09:15 Tree Trimmer Helper: Avis Martinez RT(R)(M), [facility] letter sent: Normal Exam Reading location: BI-RADS: 1 Negative [EOD] us Blake Trevizo MD IMG MAMMO PROCEDURES Final Result from Last 3 Months or Most Recently Relevant to Health Maintenance Insurance MEDICARE ADVANTAGE [facility] MEDICARE ADVANTAGE Care Teams Register Repairer Relationship Specialty Start Date End Date Ericka Morfin PA [address] [place] [id number] PCP - General Family Medicine 10/27/23
== END 2024-11-03 07:48 | disposition home or self-care (01) ==
PROVIDERS: PCP Family Medicine; Visit Provider Family Medicine
DX: R31.9 Hematuria, unspecified (principal)
CPT/HCPCS: 74178; Q9967

== ENCOUNTER 2024-11-27 09:36 | Outpatient (CLI) | payer MEDICARE, SELFPAY ==
--- NOTE | 2024-12-18 11:58 | WPDSLEEPSTUD ---
[facility] Past Medical History Medical History Insomnia Generalized anxiety disorder Essential hypertension Vertigo Overactive bladder History of hepatitis C Osteoporosis Osteoarthritis Varicose veins of both lower extremities Chondromalacia Surgical History Surgical History History of bladder suspension procedure 11/06/2014 History of total abdominal hysterectomy and bilateral salpingo-oophorectomy 04/14/2013 History of left inguinal hernia repair 08/06/2010 History of bilateral knee arthroplasty left 01/2010 right 02/2010 History of D&C Family History Family History Father Pancreatic cancer Alcoholism Mother Heart disease Diabetes mellitus Hypertension Social History Social History Smoking status: Never smoker Alcohol intake: never Substance use: never Substance use type: does not use Do You Feel Safe in your Home?: Yes Lack of Transportation: No Lack of Food: Never True Current Housing: I Have Housing Concerned About Future Housing: No Difficulty Paying Gas/Electric Bills: No Difficulty Paying for Meds: No Currently Unemployed: No Education: Trade/Vocational Certificate Difficulty w/ Childcare or Family Care: No Living arrangements: with family Occupation/Education: occupation Gender identity (if verbalized by the patient): Female Sexual Orientation (if Verbalized by the Patient): Straight or Heterosexual Spiritual care concerns: No Medications Home Medications ?Medication ?Instructions ?Recorded ?Confirmed ?Type conjugated estrogens 0.625 mg/gram 0.625 mg vaginal 2XW 10/09/22 10/20/24 History vaginal cream (Premarin) meclizine 25 mg tablet 25 mg PO BID PRN dizziness #60 tabs 10/11/22 10/20/24 Rx ondansetron HCl 4 mg tablet 4 mg PO DAILY #30 tabs 07/11/24 10/20/24 Rx lisinopril 20 1 tablet PO DAILY #90 tabs 09/26/24 10/20/24 Rx mg-hydrochlorothiazide 25 mg tablet alprazolam 0.5 mg tablet 0.5 mg PO DAILY PRN anxiety #30 10/14/24 10/20/24 Rx tabs zolpidem 5 mg tablet 5 mg PO QHS PRN insomnia #30 tabs 10/14/24 10/20/24 Rx
[2024-12-26 17:02] VITALS: BMI 27.4
--- NOTE | 2024-12-26 17:02 | P.SLEEP_ITS ---
Sleep Study Date of Study: 11/27/24 Ordering Provider: Amaury Smith MD Interpreting Physician: Vivian Dumas DO Sleep Study Type: CPAP Titration Height: 1.68 m Weight: 77.111 kg Body Mass Index: 27.4 Neck Circumference (inches): 13 [place]: 2 Reason for Sleep Study Difficulty staying asleep Sleep History The patient is a 69-year-old female that had a sleep study ordered by her primary care physician for sleep disturbances. The patient denies awakening from sleep short of breath. She occasionally awakens at night with heartburn and cough. She is unsure if she snores. She occasionally has trouble sleeping when she has a cold. She denies waking up gasping for air throughout the night. She denies sweating excessively at night. She occasionally has heart palpitations or irregular heartbeats during the night. She denies falling asleep during the day and while driving. She occasionally experiences loss of muscle tone when extremely emotional. She rarely has trouble at school or work due to sleepiness. She denies feeling unable to move waking up or falling asleep. She occasionally experiences vivid dreamlike scenes upon awakening or falling asleep. She denies feeling afraid of going to sleep. She occasionally has nightmares. She occasionally remembers her dreams. She frequently has thoughts racing through her mind. She frequently feels sad, depressed and anxious. She occasionally has muscular tension. She denies noticing parts of her body jerk. She denies kicking during the night. She occasionally has aching feelings in her legs and occasionally has leg pain during the night. She denies awakening with morning jaw pain. She denies being bothered by pain during the day. She is rarely awakened by pain during the night. She rarely wakes up feeling stiff in the morning. She rarely wakes up with sore or achy muscles. She occasionally wakes up with pain in the neck, spine and other joints. She goes to bed at 11:00 p.m. on weekdays and at midnight on the weekends. The amount of time it takes for her to fall asleep is variable. She wakes up 5 times throughout the night to urinate. The amount of time it takes her to fall back asleep after waking up during the night is variable. She wakes up between 7 8:00 a.m. on both weekdays and weekends. She typically gets 7 hours of sleep per night. She will stay in bed for 30 minutes after waking up in the morning. She currently lives with her . She denies consuming any caffeinated beverages within 2 hours of bedtime. She denies engaging in physical exercise before bedtime. She will read and watch television before falling asleep. She denies taking naps in afternoon or the evening. She will have 1 cup of coffee in the morning and occasionally have a caffeinated soda. She denies tobacco, alcohol and recreational drug use. [facility] Past Medical History Medical History Insomnia Generalized anxiety disorder Essential hypertension Vertigo Overactive bladder History of hepatitis C Osteoporosis Osteoarthritis Varicose veins of both lower extremities Chondromalacia Surgical History Surgical History History of bladder suspension procedure 11/06/2014 History of total abdominal hysterectomy and bilateral salpingo-oophorectomy 04/14/2013 History of left inguinal hernia repair 08/06/2010 History of bilateral knee arthroplasty left 01/2010 right 02/2010 History of D&C Family History Family History Father Pancreatic cancer Alcoholism Mother Heart disease Diabetes mellitus Hypertension Social History Social History Smoking status: Never smoker Alcohol intake: never Substance use: never Substance use type: does not use Do You Feel Safe in your Home?: Yes Lack of Transportation: No Lack of Food: Never True Current Housing: I Have Housing Concerned About Future Housing: No Difficulty Paying Gas/Electric Bills: No Difficulty Paying for Meds: No Currently Unemployed: No Education: Trade/Vocational Certificate Difficulty w/ Childcare or Family Care: No Living arrangements: with family Occupation/Education: occupation Gender identity (if verbalized by the patient): Female Sexual Orientation (if Verbalized by the Patient): Straight or Heterosexual Spiritual care concerns: No Medications Home Medications ?Medication ?Instructions ?Recorded ?Confirmed ?Type conjugated estrogens 0.625 mg/gram 0.625 mg vaginal 2XW 10/09/22 10/20/24 History vaginal cream (Premarin) meclizine 25 mg tablet 25 mg PO BID PRN dizziness #60 tabs 10/11/22 10/20/24 Rx ondansetron HCl 4 mg tablet 4 mg PO DAILY #30 tabs 07/11/24 10/20/24 Rx lisinopril 20 1 tablet PO DAILY #90 tabs 09/26/24 10/20/24 Rx mg-hydrochlorothiazide 25 mg tablet alprazolam 0.5 mg tablet 0.5 mg PO DAILY PRN anxiety #30 10/14/24 10/20/24 Rx tabs zolpidem 5 mg tablet 5 mg PO QHS PRN insomnia #30 tabs 10/14/24 10/20/24 Rx Sleep Procedure A full night CPAP Titration using the [email or web address] multi-channel system recorded the standard physiologic parameters including EEG, EOG, submentalis EMG, anterior tibialis EMG, EKG, body position, nasal and oral airflow using nasal pressure sensor and thermistor.? Respiratory parameters of chest and abdominal movements were recorded with Respiratory Inductance Plethysmography belts. Oxygen saturation was recorded by pulse oximetry. Video monitoring was also performed. Sleep stages, periodic limb movements, and EEG arousals were scored in 30 second epochs according to the criteria of the AASM Scoring Manual. The Apnea-Hypopnea Index was calculated using CMS guidelines for definition of hypopnea with 4% O2 desaturations while scoring respiratory events. Sleep Architecture The total recording time was 423.3 minutes.? The total sleep time was 218.5 minutes. Sleep latency was 4.7 minutes. REM latency was 172.0 minutes. Sleep efficiency was 51.6%. The patient had 32 awakenings for an awakening index of 8.8. Wake after Sleep Onset time was 200.0 minutes. The patient spent 45.5 minutes, 20.8% of total sleep time in Stage N1. The patient spent 161.0 minutes, 73.7% in Stage N2. The patient spent 6.0 minutes, 2.7% in Stage N3. The patient spent 6.0 minutes, 2.7% in Stage REM. Respiratory Analysis The patient had 3 hypopneas and 2 mixed apneas for an overall Apnea Hypopnea Index of 1.4 events per hour. The REM Apnea Hypopnea Index was 0. The NREM Apnea Hypopnea Index was 1.4. The patient had a Central Apnea Hypopnea Index of 0. There was no evidence of Vaibhav-Jarquin Respirations. The patient was started on CPAP 5 cm H2O and titrated to CPAP 9 cm H2O due to hypopneas and hypoxemia. The patient was able to fall asleep starting on CPAP 5 cm H2O. The patient was able to achieve REM sleep starting on CPAP 7 cm H2O. The patient was able to achieve a residual AHI less than 5 with both NREM and REM sleep in the supine position on the final pressure setting. On CPAP 7 cm H2O, the patient spent 116 minutes in NREM and 6 minutes in REM with 2 hypopneas, resulting in an AHI of 1.0. The patient had a sleep efficiency of 93..8% on this pressure setting. Arousals There were 108 total arousals for an arousal index of 29.7. There were 42 spontaneous arousals for an index of 11.5. ?There were 4 arousals due to respiratory events for an index of 1.1. There were 39 arousals due to periodic limb movements for an index of 10.7.? There were 23 arousals due to isolated limb movements for an index of 6.3. Periodic Limb Movements The patient had 42 isolated limb movements with an index of 11.5. The patient had 81 periodic limb movements with index of 22.2, which is elevated (normal < 15). Patient had a total of 123 limb movements with a total limb movement index of 33.8. Oximetry Data The patient had an average oxygen saturation of 91.6% in sleep with a minimum oxygen saturation of 87.0% and a maximum oxygen saturation of 97.0%. The patient had 3 oxygen desaturations that were 4% or greater resulting in an Oxygen Desaturation Index of 0.8.? The patient spent 27.7 minutes, 6.7% of total sleep time with an oxygen saturation below 88%. Snoring Profile Snoring was not present during this study, Cardiac Profile The EKG showed normal sinus rhythm with occasional PVCs and intermittent bigeminy. The patient had an average pulse rate of 71.2 bpm with a minimum pulse rate of 39.0 bpm and a maximum pulse rate of 83.0 bpm. ? EEG Profile No signs of seizure activity seen. Assessment and Plan Assessment and Plan (1) AUSTEN (obstructive sleep apnea): Code(s): G47.33 - Obstructive sleep apnea (adult) (pediatric) Status: Acute Assessment and Plan: The patient was started on CPAP 5 cm H2O and titrated to CPAP 9 cm H2O due to hypopneas and hypoxemia. The patient's sleep apnea resolved on the final 3 pressure settings. I recommend that the patient be prescribed CPAP 7 cm H2O, size medium F&P solo pillows, CPAP filters/tubing and heated humidity. This should be used with all episodes of sleep.? Compliance should be reviewed within 31-90 days of starting therapy for usage greater than 4 hours per night greater than 70% of the nights. The patient should be asked about symptoms such as?excessive daytime sleepiness, quality of sleep, decreased nocturia, increased?mental functioning such as memory, mood, and concentration. While the patient had a significant number of periodic limb movements, the frequency drastically reduced when the patient was titrated to the optimal pressure setting. I recommend asking the patient Data The data obtained during this sleep study is adequate for interpretation. Certification This sleep study has been reviewed by a board certified sleep medicine physician.
[2024-12-26 17:46] VITALS: BMI 27.4
== END 2024-11-28 06:28 | disposition home or self-care (01) ==
LOC: ANHCSM 09:38
PROVIDERS: PCP Family Medicine; Visit Provider Family Medicine
DX: G47.33 Obstructive sleep apnea (adult) (pediatric) (principal); I10 Essential (primary) hypertension
CPT/HCPCS: 95811

== ENCOUNTER 2024-12-20 13:30 | Outpatient (CLI) | payer MEDICARE, SELFPAY ==
--- NOTE | ~2024-12-20 | MM_ITS ---
EXAMINATION: MM screening rina BI w barby HISTORY: Screening TECHNIQUE: Craniocaudal and mediolateral oblique 3-D tomosynthesis images were obtained and synthetic 2-D images were generated. CAD analysis was submitted and interpreted. COMPARISON: Comparison to multiple prior studies sequentially, with oldest reviewed study dated 07/15. BREAST PARENCHYMAL COMPOSITION: There are scattered areas of fibroglandular density. FINDINGS: There is no evidence of suspicious mass, calcification, or architectural distortion to sug gest malignancy in either breast. IMPRESSION: 1. No mammographic evidence of malignancy. 2. Recommend routine screening mammography in one year. BI-RADS Category 1: Negative Reviewed, dictated and finalized at location B.
== END 2024-12-20 13:31 | disposition home or self-care (01) ==
LOC: MICIMG 13:33
PROVIDERS: PCP Family Medicine; Visit Provider Family Medicine
DX: Z12.31 Encounter for screening mammogram for malignant neoplasm of breast (principal)
CPT/HCPCS: 77063; 77067

== ENCOUNTER 2025-04-03 15:04 | Outpatient (CLI) | payer MEDICARE, SELFPAY ==
--- NOTE | ~2025-04-03 | DEXA_ITS ---
Bone Density Report Name: JAQUI RIBEIRO Age: 69 Sex: Female Ethnicity: White Date of : 1955 Indication: osteopenia; height loss; hysterectomy; Referring Provider: JUAN DEWEY Study: Bone densitometry was performed. Exam Date: April 03, 2025 Accession number: [id number] Bone Density: Region BMD T-score Z-score Classification AP Spine(L1-L4) 0.809 -2.2 0.0 Osteopenia Femoral Neck (Left) 0.696 -1.4 0.5 Osteopenia Total Hip (Left) 0.777 -1.3 0.2 Osteopenia Femoral Neck (Right) 0.674 -1.6 0.3 Osteopenia Total Hip (Right) 0.788 -1.3 0.3 Osteopenia Total Hip Mean 0.783 -1.3 0.3 Osteopenia World Health Organization criteria for BMD impression classify patients as: Normal (T-score at or above -1.0), Osteopenia (T-score between -1.0 and -2.5), or Osteoporosis (T-score at or below -2.5). 10-year Fracture Risk(1): Major Osteoporotic Fracture 10% Hip Fracture 1.6% Reported Risk Factors: [place] (), Neck BMD=0.674, BMI=28.3 (1) FRAX(R) Version 3.08. Fracture probability calculated for an untreated patient. Fracture probability may be lower if the patient has received treatment. Previous Exams: -- Region Exam Age BMD T-score BMD Change BMD Change Date g/cm2 vs Baseline vs Previous -- AP Spine (L1-L4) 04/03/2025 69 0.809 -2.2 -1.1% -2.3% 04/10/2022 66 0.828 -2.0 1.3% 0.3% 08/08/2015 59 0.826 -2.0 0.9% 4.7%* 02/24/2013 57 0.789 -2.3 -3.6%* -3.6%* 02/13/2011 55 0.818 -2.1 Total Hip(Left) 04/03/2025 69 0.777 -1.3 -0.4% -7.3%* 04/10/2022 66 0.839 -0.8 7.5%* 7.3%* 08/08/2015 59 0.782 -1.3 0.2% -4.9%* 02/24/2013 57 0.822 -1.0 5.3%* 5.3%* 02/13/2011 55 0.780 -1.3 Total Hip(Right) 04/03/2025 69 0.788 -1.3 -0.5% -4.7%* 04/10/2022 66 0.827 -0.9 4.4%* 1.6% 08/08/2015 59 0.814 -1.0 2.8% -2.0% 02/24/2013 57 0.831 -0.9 4.9%* 4.9%* 02/13/2011 55 0.792 -1.2 -- *Denotes significance at 95% confidence level, LSC for AP Spine = 0.022 g/cm2, LSC for Total Hip = 0.027 g/cm2 Clinical Information Provided by Patient: Has used the following medications: Fosamax (i.e. alendronate), Vitamin D, Calcium Has the following medical conditions: Hysterectomy Patient maximum height was 66.5 Menopause Age: 48 No regular weight bearing exercise Drinks caffeinated beverages Onset of menses at age 11 Number of children 2 Impression: The patient has low bone mass, based on the Total Spine T-score. The patient has an estimated ten-year risk of hip fracture of 1.6% and an estimated ten-year risk of major fracture of 10%, based on the WHO FRAX algorithm. The BMD for the Total Hip(Left) decreased, changing by -7.3% since the last DXA exam. The BMD for the Total Hip(Right) decreased, changing by -4.7% since the last DXA exam. Discussion: BONE DENSITY IS LOW AT ONE OR MORE SKELETAL SITES. This patient's lowest T-score is low at one or more skeletal sites. It meets the World Health Organization's (WHO) criteria for ?low bone mass? (T-score between -1.0 and -2.5). The patient's 10-year risk of fracture as calculated by FRAX is less than the threshold where pharmacological therapy is recommended by the National Osteoporosis Foundation (NOF). However, all treatment decisions require clinical judgment and consideration of individual patient factors, including patient preferences, comorbidities, previous drug use, risk factors not captured in the FRAX model (e.g., frailty, falls, vitamin D deficiency, increased bone turnover, interval significant decline in bone density) and possible under or overestimation of fracture risk by FRAX. The patient should follow a healthful lifestyle (good nutrition with adequate calcium and vitamin D, and appropriate weight-bearing exercise). Follow-Up: Consider repeating this study in 2 years to reassess this patient's status, or sooner if there is some new clinical indication. Reported by: CARLEEN on 04/03/2025 3:40:00 PM. Reviewed, dictated and finalized at location A.
== END 2025-04-03 15:05 | disposition home or self-care (01) ==
LOC: MICIMG 15:04
PROVIDERS: PCP Family Medicine
DX: M85.89 Other specified disorders of bone density and structure, multiple sites (principal); M81.0 Age-related osteoporosis without current pathological fracture
CPT/HCPCS: 77080